=== PATIENT | male | born 1945 | race Caucasian/White ===

== ENCOUNTER 2016-12-01 12:43 | Day surgery (SDC) | payer MEDICARE ==
[~2016-12-01] VITALS: Ht 193 cm; Wt 84.0 kg
[2016-12-01 13:05] VITALS: BP 98/60
[2016-12-01] MEDS ORDERED: LACTATED RINGERS 1,000 ML IV SCH (14:16)
[2016-12-01] MEDS ORDERED: MULT-717 PO (14:20)
[2016-12-01] MEDS ORDERED: LISI-167 PO (14:20)
[2016-12-01] MEDS ORDERED: ASPI-496 PO (14:20)
[2016-12-01 14:29] LABS: HEMATOCRIT 35.7 % (39.2-51.8); HEMOGLOBIN 11.9 g/dL (13.7-18.0); WHITE BLOOD COUNT 9.6 x10^3/uL (3.4-10)
[2016-12-01 14:39] LABS: ASPARTATE AMINO TRANSFERASE 36 U/L (15-37); BLOOD UREA NITROGEN 20 mg/dL (7-18)
[2016-12-01] MEDS ORDERED: MIDAZOLAM 1 MG/ML, 2ML ONE (15:44)
[2016-12-01] MEDS ORDERED: FENTANYL PF 100 MCG/2ML ONE ×2 (15:44)
[2016-12-01] MEDS ORDERED: METOPROLOL 1 MG/ML, 5ML IV PRN (16:30)
[2016-12-01] MEDS ORDERED: HYDROcodone/APAP 7.5-325MG/15ML UDC PO PRN (16:30)
[2016-12-01] MEDS ORDERED: FENTANYL PF 100 MCG/2ML IV PRN (16:30)
[2016-12-01] MEDS ORDERED: MEPERIDINE/PF 25MG/0.5ML IVPush PRN (16:30)
[2016-12-01] MEDS ORDERED: HYDROmorphone 1 MG/ML, 1ML IV PRN (16:30)
[2016-12-01] MEDS ORDERED: ACETAMINOPHEN 325 MG TABLET PO PRN (16:30)
[2016-12-01] MEDS ORDERED: PROMETHAZINE 25 MG/ML, 1ML IV PRN (16:30)
[2016-12-01] MEDS ORDERED: ALBUTEROL SULFATE 2.5 MG/3 ML NPPB PRN (16:30)
[2016-12-01] MEDS ORDERED: hydrALAzine 20 MG/ML, 1ML IV PRN (16:30)
[2016-12-01] MEDS ORDERED: LABETALOL 5MG/ML, 20ML IV PRN (16:30)
[2016-12-01] MEDS ORDERED: EPHEDRINE 50 MG/ML, 1ML IVPush PRN (16:30)
[2016-12-01] MEDS ORDERED: ONDANSETRON 2MG/ML, 2ML IVPush PRN (16:30)
[2016-12-01] MEDS ORDERED: OXYcodone 5 MG/5 ML ORAL.SOL UDC PO PRN (16:30)
[2016-12-01] MEDS ORDERED: MIDAZOLAM 1 MG/ML, 2ML IV PRN (16:30)
[2016-12-01] MEDS ORDERED: OXYcodone/APAP 5/325MG TABLET PO PRN (17:00)
== END 2016-12-01 19:40 | disposition home or self-care (01) ==
LOC: OUT 12:43
PROVIDERS: ATTEND Urology
DX: C67.9 Malignant neoplasm of bladder, unspecified (principal); I10 Essential (primary) hypertension; Z86.73 Personal history of transient ischemic attack (TIA), and cerebral infarction without residual deficits; Z98.890 Other specified postprocedural states
CPT/HCPCS: 36415; 52235; 80053; 85025; 85610; 88305; 88341; 88342; 93005; J2250; J3010; G0461

== ENCOUNTER → 2017-03-29 | Outpatient (CLI) | payer MEDICARE ==
[~2017-03-29] MED LIST: ASPI-496 PO; HYDR-3240 PO; LISI-167 PO; MULT-717 PO; SULF1TAB24 PO
== END | disposition home or self-care (01) ==
LOC: WOUND 12:57
PROVIDERS: ATTEND Internal Medicine Cardiovascular Disease
DX: Z93.3 Colostomy status (principal); D09.0 Carcinoma in situ of bladder; E78.5 Hyperlipidemia, unspecified; I10 Essential (primary) hypertension; M19.90 Unspecified osteoarthritis, unspecified site; Z85.048 Personal history of other malignant neoplasm of rectum, rectosigmoid junction, and anus
CPT/HCPCS: G0463; WOU0463

== ENCOUNTER → 2017-03-30 | Outpatient (CLI) | payer MEDICARE ==
[~2017-03-30] MED LIST changes: -HYDR-3240 PO; -SULF1TAB24 PO
[2017-03-30 12:03] LABS: BASOPHILS # (AUTO) 0.04 x10^3/uL (0-0.1); BASOPHILS % (AUTO) 1 % (0-1); EOSINOPHILS # (AUTO) 0.19 x10^3/uL (0-0.4); EOSINOPHILS % (AUTO) 4 % (1-7); LYMPHOCYTES # (AUTO) 0.74 x10^3/uL (1-3.4); LYMPHOCYTES % (AUTO) 16 % (22-44); MD NO; MEAN CORPUSCULAR HEMOGLOBIN 32.9 pg (27.5-34.5); MEAN CORPUSCULAR HGB CONC 33.5 g/dL (33.2-36.2); MEAN CORPUSCULAR VOLUME 98.2 fL (81-97); MEAN PLATELET VOLUME 8.2 fL (7.4-10.4); MONOCYTES # (AUTO) 0.67 x10^3/uL (0.2-0.8); MONOCYTES % (AUTO) 14 % (2-9); NEUTROPHILS % (AUTO) 66 % (42-75); PLATELET COUNT 168 x10^3/uL (130-400); RED BLOOD COUNT 4.81 x10^6/uL (4.38-5.82); RED CELL DISTRIBUTION WIDTH 13.4 % (9.4-14.8)
[2017-03-30 12:09] LABS: MICROSCOPIC INDICATED
[2017-03-30 12:16] LABS: ALANINE AMINOTRANSFERASE 30 U/L (12-78); ALBUMIN 3.7 g/dL (3.4-5.0); ANION GAP 6 mmol/L (5-15); CHLORIDE 104 mmol/L (98-107); CREATININE 1.09 mg/dL (0.7-1.3)
[2017-03-30 12:18] LABS: ALKALINE PHOSPHATASE 101 U/L (45-117); BILIRUBIN,TOTAL 0.7 mg/dL (0.2-1.0); TOTAL PROTEIN 7.7 g/dL (6.4-8.2)
== END | disposition home or self-care (01) ==
LOC: STAR 09:58
PROVIDERS: ATTEND Urology
DX: Z01.818 Encounter for other preprocedural examination (principal); C67.9 Malignant neoplasm of bladder, unspecified; R94.31 Abnormal electrocardiogram [ECG] [EKG]; R82.99 Other abnormal findings in urine
CPT/HCPCS: 36415; 80053; 81001; 85025; 87077; 87086; 87186; 93005

== ENCOUNTER 2017-04-04 05:24 | Inpatient (IN) | payer MEDICARE ==
[~2017-04-04] VITALS: Ht 193 cm; Wt 95.8 kg
[2017-04-04] MEDS ORDERED: LACTATED RINGERS 1,000 ML IV SCH (06:20)
[2017-04-04 06:24] VITALS: BP 146/91
[2017-04-04] MEDS ORDERED: FENTANYL PF 250 MCG/5ML ONE (07:16)
[2017-04-04] MEDS ORDERED: MIDAZOLAM 1 MG/ML, 2ML ONE (07:16)
[2017-04-04] MEDS ORDERED: LIDOCAINE 1%, 50ML ONE (07:23)
[2017-04-04] MEDS ORDERED: BUPIVACAINE/PF 0.5% ONE (07:23)
[2017-04-04] MEDS ORDERED: THROMBIN 5,000 UNIT VIAL TP ONE (07:24)
[2017-04-04] MEDS ORDERED: EPINEPHRINE 1 MG/ML, 1ML ONE (07:24)
[2017-04-04] MEDS ORDERED: ALBUMIN HUMAN 5% 500 ML ONE (07:30)
[2017-04-04] MEDS ORDERED: FUROSEMIDE 20 MG/2 ML ONE (07:30)
[2017-04-04] MEDS ORDERED: NEOSTIGMINE 1 MG/ML, 10ML ONE (07:31)
[2017-04-04] MEDS ORDERED: PHENYLEPHRINE 10 MG/ML ONE ×2 (07:31→12:59)
[2017-04-04] MEDS ORDERED: PROPOFOL 10 MG/ML, 20ML ONE (07:31)
[2017-04-04] MEDS ORDERED: GLYCOPYRROLATE 0.2MG/1ML, 5ML ONE (07:31)
[2017-04-04] MEDS ORDERED: CEFAZOLIN 1,000 MG ONE (07:31)
[2017-04-04] MEDS ORDERED: ROCURONIUM 10 MG/ML,10ML ONE (07:31)
[2017-04-04] MEDS ORDERED: DEXAMETHASONE 4 MG/ML, 1ML ONE (07:31)
[2017-04-04] MEDS ORDERED: SUCCINYLCHOLINE 20 MG/ML, 10ML ONE (07:31)
[2017-04-04] MEDS ORDERED: ONDANSETRON 2MG/ML, 2ML ONE (07:31)
[2017-04-04] MEDS ORDERED: HYDROcodone/APAP 7.5-325MG/15ML UDC PO PRN (08:00)
[2017-04-04] MEDS ORDERED: ACETAMINOPHEN 325 MG TABLET PO PRN (08:00)
[2017-04-04] MEDS ORDERED: OXYcodone 5 MG/5 ML ORAL.SOL UDC PO PRN (08:00)
[2017-04-04] MEDS ORDERED: HYDROmorphone 1 MG/ML, 1ML IV PRN ×2 (08:00→17:00)
[2017-04-04] MEDS ORDERED: PROMETHAZINE 25 MG/ML, 1ML IV PRN (08:00)
[2017-04-04] MEDS ORDERED: ONDANSETRON 2MG/ML, 2ML IVPush PRN (08:00)
[2017-04-04] MEDS ORDERED: HYDROmorphone 2 MG/ML, 1ML ONE ×2 (08:26→17:46)
[2017-04-04] MEDS ORDERED: LIDOCAINE-MPF 2% ,5ML ONE (13:33)
[2017-04-04] MEDS ORDERED: EPHEDRINE 50 MG/ML, 1ML ONE (14:25)
[2017-04-04] MEDS ORDERED: FENTANYL PF 100 MCG/2ML ONE (14:33)
[2017-04-04] MEDS: FENTANYL PF 100 MCG/2ML IV PRN ×2 (14:35→15:42)
[2017-04-04] MEDS ORDERED: ACETAMINOPHEN 650 MG/20.3 ML UDC ONE (14:54)
[2017-04-04] MEDS ORDERED: ACETAMINOPHEN 325 MG TABLET ONE (14:54)
[2017-04-04] MEDS ORDERED: OXYcodone 5 MG/5 ML ORAL.SOL UDC ONE (14:54)
[2017-04-04 14:59] LABS: MEAN CORPUSCULAR HEMOGLOBIN 32.7 pg (27.5-34.5); MEAN CORPUSCULAR HGB CONC 33.8 g/dL (33.2-36.2); MEAN CORPUSCULAR VOLUME 96.8 fL (81-97); MEAN PLATELET VOLUME 7.5 fL (7.4-10.4); PLATELET COUNT 183 x10^3/uL (130-400); RED BLOOD COUNT 3.75 x10^6/uL (4.38-5.82); RED CELL DISTRIBUTION WIDTH 12.7 % (9.4-14.8)
[2017-04-04] MEDS ORDERED: EPHEDRINE 50 MG/ML, 1ML IVPush ONE (15:00)
[2017-04-04] MEDS ORDERED: ACETAMINOPHEN 500 MG TABLET PO ONE (15:00)
[2017-04-04] MEDS ORDERED: KETOROLAC 30 MG/1 ML ONE (15:03)
[2017-04-04] MEDS ORDERED: KETOROLAC 30 MG/1 ML IVPush SCH (15:30)
[2017-04-04 15:44] LABS: BASOPHILS # (AUTO) 0.01 x10^3/uL (0-0.1); BASOPHILS % (AUTO) 0 % (0-1); EOSINOPHILS # (AUTO) 0.01 x10^3/uL (0-0.4); EOSINOPHILS % (AUTO) 0 % (1-7); LYMPHOCYTES # (AUTO) 0.98 x10^3/uL (1-3.4); LYMPHOCYTES % (AUTO) 9 % (22-44); MD SCAN; MONOCYTES # (AUTO) 0.08 x10^3/uL (0.2-0.8); MONOCYTES % (AUTO) 1 % (2-9); NEUTROPHILS # (AUTO) 9.63 x10^3/uL (1.8-6.8); NEUTROPHILS % (AUTO) 90 % (42-75)
[2017-04-04] MEDS ORDERED: CEFOTETAN 2 GM ONE (16:20)
[2017-04-04] MEDS ORDERED: VASOPRESSIN 20 UNIT/ML, 1ML ONE (16:20)
[2017-04-04] MEDS ORDERED: ENALAPRILAT 1.25 MG/ML, 2ML IV PRN (17:00)
[2017-04-04] MEDS ORDERED: LORazepam 1MG TABLET PO PRN (17:00)
[2017-04-04] MEDS ORDERED: DIPHENHYDRAMINE 25 MG CAPSULE PO PRN (17:00)
[2017-04-04] MEDS: POTASSIUM CHLORIDE 20 MEQ in D5%-0.45% NACL 1,000 ML IV SCH (17:49)
[2017-04-04] MEDS: CEFOTETAN PMX 2GM/50ML 50 ML IVPB SCH (19:26)
[2017-04-04] MEDS: ACETAMINOPHEN 500 MG TABLET PO SCH (20:23)
[2017-04-04 20:28] VITALS: BP 118/62
[2017-04-04] MEDS ORDERED: KETOROLAC 30 MG/1 ML IV PRN (21:00)
[2017-04-04] MEDS ORDERED: ACETAMINOPHEN 500 MG TABLET PO SCH (21:00)
[2017-04-05 00:18] VITALS: BP 120/66
[2017-04-05] MEDS: OXYcodone 5 MG/5 ML ORAL.SOL UDC PO PRN ×2 (02:42→23:19)
[2017-04-05] MEDS: ACETAMINOPHEN 500 MG TABLET PO SCH ×3 (02:42→15:19)
[2017-04-05 02:44] VITALS: BP 125/69
[2017-04-05] MEDS: POTASSIUM CHLORIDE 20 MEQ in D5%-0.45% NACL 1,000 ML IV SCH ×2 (04:47→15:41)
[2017-04-05 06:06] LABS: BASOPHILS % (AUTO) 0 % (0-1); EOSINOPHILS % (AUTO) 0 % (1-7); MD NO; MEAN PLATELET VOLUME 8.1 fL (7.4-10.4)
[2017-04-05 06:26] LABS: LYMPHOCYTES # (AUTO) 0.51 x10^3/uL (1-3.4); LYMPHOCYTES % (AUTO) 4 % (22-44); MEAN CORPUSCULAR HEMOGLOBIN 32.8 pg (27.5-34.5); MEAN CORPUSCULAR HGB CONC 33.7 g/dL (33.2-36.2); MEAN CORPUSCULAR VOLUME 97.2 fL (81-97); MONOCYTES # (AUTO) 0.74 x10^3/uL (0.2-0.8); MONOCYTES % (AUTO) 6 % (2-9); NEUTROPHILS # (AUTO) 11.22 x10^3/uL (1.8-6.8); NEUTROPHILS % (AUTO) 90 % (42-75); PLATELET COUNT 172 x10^3/uL (130-400); RED BLOOD COUNT 3.82 x10^6/uL (4.38-5.82); RED CELL DISTRIBUTION WIDTH 12.6 % (9.4-14.8)
[2017-04-05 06:50] LABS: ALBUMIN 2.9 g/dL (3.4-5.0); ANION GAP 9 mmol/L (5-15); CALCIUM 7.7 mg/dL (8.5-10.1); CHLORIDE 108 mmol/L (98-107); CREATININE 1.44 mg/dL (0.7-1.3)
[2017-04-05 07:07] VITALS: BP 143/72
[2017-04-05] MEDS: CEFOTETAN PMX 2GM/50ML 50 ML IVPB SCH (08:09)
[2017-04-05] MEDS: ENOXAPARIN 40 MG/0.4 ML SQ SCH (10:42)
[2017-04-05] MEDS: ONDANSETRON 2MG/ML, 2ML IV PRN ×2 (10:42→23:19)
[2017-04-05 13:10] VITALS: BP 126/72
[2017-04-05 20:31] VITALS: BP 152/89
[2017-04-06] MEDS: POTASSIUM CHLORIDE 20 MEQ in D5%-0.45% NACL 1,000 ML IV SCH ×3 (02:01→21:55)
[2017-04-06 02:19] VITALS: BP 160/89
[2017-04-06 05:46] LABS: BASOPHILS % (AUTO) 0 % (0-1); EOSINOPHILS % (AUTO) 0 % (1-7); LYMPHOCYTES # (AUTO) 0.57 x10^3/uL (1-3.4); LYMPHOCYTES % (AUTO) 5 % (22-44); MD NO; MEAN CORPUSCULAR HEMOGLOBIN 32.7 pg (27.5-34.5); MEAN CORPUSCULAR HGB CONC 33.4 g/dL (33.2-36.2); MONOCYTES # (AUTO) 0.69 x10^3/uL (0.2-0.8); MONOCYTES % (AUTO) 6 % (2-9); NEUTROPHILS # (AUTO) 11.22 x10^3/uL (1.8-6.8); NEUTROPHILS % (AUTO) 90 % (42-75); PLATELET COUNT 186 x10^3/uL (130-400); RED BLOOD COUNT 3.48 x10^6/uL (4.38-5.82); RED CELL DISTRIBUTION WIDTH 13.1 % (9.4-14.8)
[2017-04-06 05:56] LABS: ALBUMIN 2.6 g/dL (3.4-5.0); ANION GAP 8 mmol/L (5-15); CALCIUM 7.9 mg/dL (8.5-10.1); CHLORIDE 106 mmol/L (98-107); CREATININE 1.04 mg/dL (0.7-1.3)
[2017-04-06 07:05] VITALS: BP 153/88
[2017-04-06] MEDS: ENOXAPARIN 40 MG/0.4 ML SQ SCH (10:08)
[2017-04-06 13:34] VITALS: BP 169/91
[2017-04-06] MEDS: hydrALAzine 20 MG/ML, 1ML IV PRN (13:43)
[2017-04-06 14:28] VITALS: BP 136/75
[2017-04-06 21:29] VITALS: BP 147/86
[2017-04-06] MEDS: ONDANSETRON 2MG/ML, 2ML IV PRN (21:56)
[2017-04-06] MEDS: OXYcodone 5 MG/5 ML ORAL.SOL UDC PO PRN (23:10)
[2017-04-07 01:55] VITALS: BP 153/83
[2017-04-07 05:58] LABS: ALBUMIN 2.4 g/dL (3.4-5.0); ANION GAP 5 mmol/L (5-15); CALCIUM 7.9 mg/dL (8.5-10.1); CHLORIDE 108 mmol/L (98-107); CREATININE 0.77 mg/dL (0.7-1.3)
[2017-04-07] MEDS: ONDANSETRON 2MG/ML, 2ML IV PRN (06:11)
[2017-04-07 06:15] LABS: BASOPHILS % (AUTO) 0 % (0-1); EOSINOPHILS % (AUTO) 0 % (1-7); LYMPHOCYTES # (AUTO) 0.61 x10^3/uL (1-3.4); LYMPHOCYTES % (AUTO) 7 % (22-44); MD NO; MEAN CORPUSCULAR HGB CONC 34.2 g/dL (33.2-36.2); MEAN CORPUSCULAR VOLUME 96.4 fL (81-97); MONOCYTES # (AUTO) 0.63 x10^3/uL (0.2-0.8); MONOCYTES % (AUTO) 7 % (2-9); NEUTROPHILS # (AUTO) 8.21 x10^3/uL (1.8-6.8); NEUTROPHILS % (AUTO) 87 % (42-75); PLATELET COUNT 177 x10^3/uL (130-400); RED BLOOD COUNT 3.18 x10^6/uL (4.38-5.82); RED CELL DISTRIBUTION WIDTH 12.9 % (9.4-14.8)
[2017-04-07 07:00] VITALS: BP 177/88
[2017-04-07] MEDS: hydrALAzine 20 MG/ML, 1ML IV PRN (07:10)
[2017-04-07] MEDS: POTASSIUM CHLORIDE 20 MEQ in D5%-0.45% NACL 1,000 ML IV SCH ×2 (08:31→20:42)
[2017-04-07] MEDS: FAMOTIDINE 20 MG TABLET PO SCH ×2 (08:31→20:47)
[2017-04-07 08:34] VITALS: BP 154/83
[2017-04-07] MEDS: ENOXAPARIN 40 MG/0.4 ML SQ SCH (10:25)
[2017-04-07 12:50] VITALS: BP 126/75
[2017-04-07 20:42] VITALS: BP 132/79
[2017-04-07] MEDS: LORazepam 2 MG/ML, 1ML IV PRN (22:13)
[2017-04-08 00:44] VITALS: BP 147/78
[2017-04-08] MEDS: DIPHENHYDRAMINE 50 MG/ML, 1ML IV PRN ×2 (03:35→23:05)
[2017-04-08 05:45] LABS: BASOPHILS % (AUTO) 0 % (0-1); EOSINOPHILS # (AUTO) 0.07 x10^3/uL (0-0.4); EOSINOPHILS % (AUTO) 1 % (1-7); LYMPHOCYTES # (AUTO) 0.52 x10^3/uL (1-3.4); LYMPHOCYTES % (AUTO) 7 % (22-44); MD NO; MEAN CORPUSCULAR HEMOGLOBIN 32.9 pg (27.5-34.5); MEAN CORPUSCULAR HGB CONC 34.1 g/dL (33.2-36.2); MEAN CORPUSCULAR VOLUME 96.5 fL (81-97); MEAN PLATELET VOLUME 7.9 fL (7.4-10.4); MONOCYTES # (AUTO) 0.57 x10^3/uL (0.2-0.8); MONOCYTES % (AUTO) 8 % (2-9); NEUTROPHILS # (AUTO) 5.92 x10^3/uL (1.8-6.8); NEUTROPHILS % (AUTO) 84 % (42-75); PLATELET COUNT 175 x10^3/uL (130-400); RED BLOOD COUNT 2.92 x10^6/uL (4.38-5.82); RED CELL DISTRIBUTION WIDTH 12.9 % (9.4-14.8)
[2017-04-08 05:49] LABS: ALBUMIN 2.2 g/dL (3.4-5.0); ANION GAP 5 mmol/L (5-15); CHLORIDE 112 mmol/L (98-107); CREATININE 0.92 mg/dL (0.7-1.3)
[2017-04-08] MEDS: POTASSIUM CHLORIDE 20 MEQ in D5%-0.45% NACL 1,000 ML IV SCH ×2 (06:47→19:09)
[2017-04-08] MEDS: FAMOTIDINE 20 MG TABLET PO SCH ×2 (09:00→19:09)
[2017-04-08] MEDS: ENOXAPARIN 40 MG/0.4 ML SQ SCH (10:43)
[2017-04-08 12:33] VITALS: BP 130/81
[2017-04-08 20:39] VITALS: BP 125/78
[2017-04-09] MEDS: LORazepam 2 MG/ML, 1ML IV PRN (01:35)
[2017-04-09 03:19] VITALS: BP 123/74
[2017-04-09] MEDS: POTASSIUM CHLORIDE 20 MEQ in D5%-0.45% NACL 1,000 ML IV SCH ×2 (04:58→15:47)
[2017-04-09 05:20] LABS: BASOPHILS # (AUTO) 0.01 x10^3/uL (0-0.1); BASOPHILS % (AUTO) 0 % (0-1); EOSINOPHILS # (AUTO) 0.11 x10^3/uL (0-0.4); EOSINOPHILS % (AUTO) 2 % (1-7); LYMPHOCYTES # (AUTO) 0.66 x10^3/uL (1-3.4); LYMPHOCYTES % (AUTO) 10 % (22-44); MD NO; MEAN CORPUSCULAR HGB CONC 34.4 g/dL (33.2-36.2); MEAN CORPUSCULAR VOLUME 95.7 fL (81-97); MEAN PLATELET VOLUME 7.8 fL (7.4-10.4); MONOCYTES # (AUTO) 0.59 x10^3/uL (0.2-0.8); MONOCYTES % (AUTO) 9 % (2-9); NEUTROPHILS # (AUTO) 5.52 x10^3/uL (1.8-6.8); NEUTROPHILS % (AUTO) 80 % (42-75); PLATELET COUNT 182 x10^3/uL (130-400); RED BLOOD COUNT 2.91 x10^6/uL (4.38-5.82); RED CELL DISTRIBUTION WIDTH 12.8 % (9.4-14.8)
[2017-04-09 05:28] LABS: CHLORIDE 113 mmol/L (98-107)
[2017-04-09 05:35] LABS: ALBUMIN 2.2 g/dL (3.4-5.0); ANION GAP 7 mmol/L (5-15); CALCIUM 8.1 mg/dL (8.5-10.1); CREATININE 0.87 mg/dL (0.7-1.3)
[2017-04-09 06:58] VITALS: BP 159/72
[2017-04-09] MEDS: FAMOTIDINE 20 MG TABLET PO SCH ×3 (09:00→20:49)
[2017-04-09] MEDS: ENOXAPARIN 40 MG/0.4 ML SQ SCH (09:55)
[2017-04-09 13:37] VITALS: BP 153/81
[2017-04-09 20:25] VITALS: BP 153/91
[2017-04-10] MEDS: POTASSIUM CHLORIDE 20 MEQ in D5%-0.45% NACL 1,000 ML IV SCH ×3 (01:43→22:53)
[2017-04-10] MEDS: LORazepam 2 MG/ML, 1ML IV PRN ×2 (03:33→04:36)
[2017-04-10 04:00] VITALS: BP 152/80
[2017-04-10 05:49] LABS: BASOPHILS % (AUTO) 0 % (0-1); EOSINOPHILS # (AUTO) 0.07 x10^3/uL (0-0.4); EOSINOPHILS % (AUTO) 1 % (1-7); LYMPHOCYTES # (AUTO) 0.56 x10^3/uL (1-3.4); LYMPHOCYTES % (AUTO) 7 % (22-44); MD NO; MEAN CORPUSCULAR HEMOGLOBIN 33.3 pg (27.5-34.5); MEAN CORPUSCULAR HGB CONC 34.8 g/dL (33.2-36.2); MEAN CORPUSCULAR VOLUME 95.8 fL (81-97); MEAN PLATELET VOLUME 8.2 fL (7.4-10.4); MONOCYTES % (AUTO) 7 % (2-9); NEUTROPHILS # (AUTO) 7.11 x10^3/uL (1.8-6.8); NEUTROPHILS % (AUTO) 85 % (42-75); PLATELET COUNT 214 x10^3/uL (130-400); RED BLOOD COUNT 3.16 x10^6/uL (4.38-5.82)
[2017-04-10 05:55] LABS: CHLORIDE 113 mmol/L (98-107)
[2017-04-10 05:56] LABS: ALBUMIN 2.3 g/dL (3.4-5.0); ANION GAP 5 mmol/L (5-15); CALCIUM 8.3 mg/dL (8.5-10.1)
[2017-04-10] MEDS: METOCLOPRAMIDE 5 MG/ML, 2ML IVPush SCH ×3 (09:04→18:50)
[2017-04-10] MEDS: FAMOTIDINE 20 MG TABLET PO SCH ×2 (09:04→20:45)
[2017-04-10] MEDS: ENOXAPARIN 40 MG/0.4 ML SQ SCH (12:12)
[2017-04-10 13:35] VITALS: BP 153/82
[2017-04-10 19:17] VITALS: BP 119/80
[2017-04-11] MEDS: METOCLOPRAMIDE 5 MG/ML, 2ML IVPush SCH ×2 (01:04→07:38)
[2017-04-11] MEDS: LORazepam 2 MG/ML, 1ML IV PRN (02:08)
[2017-04-11 03:09] VITALS: BP 130/77
[2017-04-11 05:50] LABS: BASOPHILS # (AUTO) 0.01 x10^3/uL (0-0.1); BASOPHILS % (AUTO) 0 % (0-1); EOSINOPHILS # (AUTO) 0.09 x10^3/uL (0-0.4); EOSINOPHILS % (AUTO) 1 % (1-7); LYMPHOCYTES # (AUTO) 0.71 x10^3/uL (1-3.4); LYMPHOCYTES % (AUTO) 8 % (22-44); MD NO; MEAN CORPUSCULAR HEMOGLOBIN 32.6 pg (27.5-34.5); MEAN CORPUSCULAR HGB CONC 33.7 g/dL (33.2-36.2); MEAN CORPUSCULAR VOLUME 96.8 fL (81-97); MEAN PLATELET VOLUME 8.1 fL (7.4-10.4); MONOCYTES # (AUTO) 0.72 x10^3/uL (0.2-0.8); MONOCYTES % (AUTO) 8 % (2-9); NEUTROPHILS # (AUTO) 7.81 x10^3/uL (1.8-6.8); NEUTROPHILS % (AUTO) 84 % (42-75); PLATELET COUNT 248 x10^3/uL (130-400); RED BLOOD COUNT 3.23 x10^6/uL (4.38-5.82); RED CELL DISTRIBUTION WIDTH 12.8 % (9.4-14.8)
[2017-04-11 06:06] LABS: CHLORIDE 114 mmol/L (98-107)
[2017-04-11 06:17] LABS: ALBUMIN 2.1 g/dL (3.4-5.0); ANION GAP 9 mmol/L (5-15); CALCIUM 7.7 mg/dL (8.5-10.1); CREATININE 0.95 mg/dL (0.7-1.3)
[2017-04-11 08:23] VITALS: BP 127/78
[2017-04-11] MEDS: FAMOTIDINE 20 MG TABLET PO SCH ×2 (10:11→21:55)
[2017-04-11] MEDS: ENOXAPARIN 40 MG/0.4 ML SQ SCH (10:11)
[2017-04-11 12:44] VITALS: BP 131/86
[2017-04-11] MEDS: POTASSIUM CHLORIDE 20 MEQ in D5%-0.45% NACL 1,000 ML IV SCH (12:47)
[2017-04-11 19:51] VITALS: BP 127/75
[2017-04-12 00:51] VITALS: BP 108/69
[2017-04-12 06:15] LABS: BASOPHILS # (AUTO) 0.01 x10^3/uL (0-0.1); BASOPHILS % (AUTO) 0 % (0-1); EOSINOPHILS # (AUTO) 0.26 x10^3/uL (0-0.4); EOSINOPHILS % (AUTO) 3 % (1-7); LYMPHOCYTES # (AUTO) 0.76 x10^3/uL (1-3.4); LYMPHOCYTES % (AUTO) 8 % (22-44); MD NO; MEAN CORPUSCULAR HEMOGLOBIN 32.8 pg (27.5-34.5); MEAN CORPUSCULAR HGB CONC 34.6 g/dL (33.2-36.2); MEAN CORPUSCULAR VOLUME 94.7 fL (81-97); MEAN PLATELET VOLUME 8.2 fL (7.4-10.4); MONOCYTES # (AUTO) 0.76 x10^3/uL (0.2-0.8); MONOCYTES % (AUTO) 8 % (2-9); NEUTROPHILS # (AUTO) 7.23 x10^3/uL (1.8-6.8); NEUTROPHILS % (AUTO) 80 % (42-75); PLATELET COUNT 250 x10^3/uL (130-400); RED BLOOD COUNT 3.07 x10^6/uL (4.38-5.82); RED CELL DISTRIBUTION WIDTH 12.6 % (9.4-14.8)
[2017-04-12 06:20] LABS: ALBUMIN 2.1 g/dL (3.4-5.0); ANION GAP 10 mmol/L (5-15); CALCIUM 7.9 mg/dL (8.5-10.1); CHLORIDE 113 mmol/L (98-107)
[2017-04-12 06:21] LABS: CREATININE 1.08 mg/dL (0.7-1.3)
[2017-04-12 07:14] VITALS: BP 124/76
[2017-04-12] MEDS: FAMOTIDINE 20 MG TABLET PO SCH (08:04)
[2017-04-12] MEDS: ENOXAPARIN 40 MG/0.4 ML SQ SCH (10:46)
[2017-04-12] MEDS: POTASSIUM CHLORIDE 20 MEQ in D5%-0.45% NACL 1,000 ML IV SCH (13:12)
[2017-04-12 13:35] VITALS: BP 135/78
[2017-04-12] MEDS ORDERED: HYDR-3240 PO (14:23)
[2017-04-12] MEDS ORDERED: SULF1TAB24 PO (14:26)
[2017-04-12 16:01] VITALS: BP 125/79
== END 2017-04-12 16:53 | disposition home or self-care (01) | DRG 653 ==
LOC: ORIP 05:24 → 4NOR 16:28 → DCLOUNGE 04-12 16:44
PROVIDERS: ADMIT Urology; ATTEND Urology
PROC: 0T180ZC Bypass Bilateral Ureters to Ileocutaneous, Open Approach (ICD-10-PCS; 2017-04-04)
PROC: 0DBQ0ZZ Excision of Anus, Open Approach (ICD-10-PCS; 2017-04-04)
PROC: 0DTP0ZZ Resection of Rectum, Open Approach (ICD-10-PCS; 2017-04-04)
PROC: 0DBN0ZZ Excision of Sigmoid Colon, Open Approach (ICD-10-PCS; 2017-04-04)
PROC: 0T780DZ Dilation of Bilateral Ureters with Intraluminal Device, Open Approach (ICD-10-PCS; 2017-04-04)
PROC: 8E0W0CZ Robotic Assisted Procedure of Trunk Region, Open Approach (ICD-10-PCS; 2017-04-04)
PROC: 0VT00ZZ Resection of Prostate, Open Approach (ICD-10-PCS; principal; 2017-04-04 07:30)
PROC: 0TTB0ZZ Resection of Bladder, Open Approach (ICD-10-PCS; 2017-04-04 07:30)
DX: C79.11 Secondary malignant neoplasm of bladder (principal); E43 Unspecified severe protein-calorie malnutrition; N19 Unspecified kidney failure; C79.82 Secondary malignant neoplasm of genital organs; C20 Malignant neoplasm of rectum; Z92.21 Personal history of antineoplastic chemotherapy; Z92.3 Personal history of irradiation; Z93.3 Colostomy status; Z68.25 Body mass index [BMI] 25.0-25.9, adult
CPT/HCPCS: 36415; 74018; 80048; 80051; 82040; 85025; 86850; 86900; 86923; 88305; 88307; 88309; 88331; C1729; J0171; J0690; J1100; J1170; J1650; J1885; J2250; J2405; J2704; J2710; J3010; J3480; J3490; P9045; C1760; C2617; J0330; J0360; J1200; J1940; J2060; J2370; J2765; J7120; S0074

== ENCOUNTER → 2017-04-25 | Outpatient (CLI) | payer MEDICARE ==
[~2017-04-25] MED LIST changes: +HYDR-3240 PO; +SULF1TAB24 PO
== END ==
LOC: RAD 12:02
PROVIDERS: ATTEND Urology
DX: Z02.9 Encounter for administrative examinations, unspecified (principal)

== ENCOUNTER 2017-05-08 12:28 | Emergency (ER) | payer MEDICARE ==
[~2017-05-08] VITALS: Ht 193 cm; Wt 83.0 kg
[~2017-05-08 12:28] MED LIST changes: +ACET325T14 PO; +ERGO500017 PO; +PIPE3.375 IV
[2017-05-08 13:51] LABS: BASOPHILS # (AUTO) 0.05 x10^3/uL (0-0.1); BASOPHILS % (AUTO) 1 % (0-1); EOSINOPHILS % (AUTO) 1 % (1-7); LYMPHOCYTES # (AUTO) 1.15 x10^3/uL (1-3.4); LYMPHOCYTES % (AUTO) 12 % (22-44); MD NO; MEAN CORPUSCULAR HEMOGLOBIN 29.4 pg (27.5-34.5); MEAN CORPUSCULAR HGB CONC 32.8 g/dL (33.2-36.2); MEAN CORPUSCULAR VOLUME 89.6 fL (81-97); MEAN PLATELET VOLUME 7.6 fL (7.4-10.4); MONOCYTES # (AUTO) 0.58 x10^3/uL (0.2-0.8); MONOCYTES % (AUTO) 6 % (2-9); NEUTROPHILS # (AUTO) 8.13 x10^3/uL (1.8-6.8); NEUTROPHILS % (AUTO) 81 % (42-75); PLATELET COUNT 458 x10^3/uL (130-400); RED BLOOD COUNT 3.22 x10^6/uL (4.38-5.82)
[2017-05-08 14:01] LABS: ANION GAP 8 mmol/L (5-15); CALCIUM 8.5 mg/dL (8.5-10.1); CHLORIDE 111 mmol/L (98-107); CREATININE 1.83 mg/dL (0.7-1.3)
[2017-05-08 16:52] VITALS: BP 125/87
== END 2017-05-08 16:33 | disposition home or self-care (01) ==
LOC: ED 16:27
DX: Z93.6 Other artificial openings of urinary tract status (principal); Z93.3 Colostomy status
CPT/HCPCS: 36415; 80048; 82040; 85025; 99284